=== PATIENT | female | born 1935 | race Two or more races ===

== ENCOUNTER → 2018-05-21 11:19 | Outpatient (CLI) | payer OTHER | END | disposition home or self-care (01) | LOC: LAB 11:19 | DX: M47.816 Spondylosis without myelopathy or radiculopathy, lumbar region (principal); D68.8 Other specified coagulation defects; G60.9 Hereditary and idiopathic neuropathy, unspecified ==

== ENCOUNTER 2018-06-04 07:13 | Day surgery (SDC) | payer OTHER ==
[~2018-06-04 07:13] MED LIST: FLEXERIL PO; KEPPRA500 MG PO
== END 2018-06-04 14:05 | disposition home or self-care (01) ==
LOC: CIR.AMB 07:13
DX: M54.06 Panniculitis affecting regions of neck and back, lumbar region (principal)

== ENCOUNTER 2019-08-31 10:14 | Inpatient (IN) | payer OTHER ==
[~2019-08-31] VITALS: Ht 172.7 cm; Wt 59.0 kg
--- NOTE | 2019-08-31 10:53 | NUR ---
PACIENTE FEMINA ALERTA Y ORIENTADO REFERIDA POR DR:MELVA HEMATOLOGO POR ANEMIA HGB 8.0 HCT 25.1 PLQ. 126
--- NOTE | 2019-08-31 13:34 | NUR ---
PTE EVALUADA POR LA DRA CRONIN QUIEN ORDENA EL TX.SE ORIENTA SOBRE EL MISMO, LO CUAL REFIERE ENTENDER, SE REALIZAN PRUEBAS DE LABORATORIO Y SE CANALIZA EN BRAZO Y MANO RT, AMBOS PATENTES Y LIBRES DE EDEMA O ERITEMA. SE LLEVAN TUBOS PILOTOS A BANCO DE ALEJANDRO. PTE CON PERMISO PARA TRANSFUSION YA FIRMADO.
--- NOTE | 2019-08-31 15:00 | NUR ---
PACIENTE ALERTA Y ORIENTADA EN GELY KRISTIN ESFERAS, PRESENTA BUEN PATRON RESPIRATORIO Y MAZIN DE DOLOR, CANALIZADA EN BRAZO RT X 2, AMBAS VENOPUNCIONES PATENTES Y LIBRES DE S/S DE FLEBITIS E INFILTRACION. PACIENTE ESTA EN ESPERA DE PRBC DISPONIBLE PARA TRANSFUNDIR. PERSONAL DE [place]AN[place] DE [place] REFIRIO QUE PACIENTE PRESENTA ANTICUERPOS.
--- NOTE | 2019-08-31 15:16 | NUR ---
SEENTREGAN TUBOS PILOTOS REQUERIDOSPOR MS ARENAS DE [place]AN[place] DE A[place]JAN[place] PARA PANEL DE ANTICUERPOS. SE ENTREGAN LOS MISMOS A MR EZEKIEL 3 TUBOS CORTNEY Y 1 TUBO ANDREWS.
--- NOTE | 2019-08-31 21:05 | NUR ---
SE LLAMA A [place] DE [place] PARA VERIFICAR DISPONIBILIDAD DE UNIDAD DE PRBC, TECNOLOGO MEDICO EZEKIEL REFIERE QUE UNIDAD NO ESTA DISPONIBLE QUE NOTIFICARA CUANDO LO HEMA.
--- NOTE | 2019-09-01 03:22 | NUR ---
PACIENTE ALERTA Y ORIENTADA X3 EN CAMA CON BARANDAS ELEVADAS Y CABECERA 30 GRADOS. PACIENTE ESTABLE SE MANTIENE BAJO OBSERVACION.
--- NOTE | 2019-09-01 04:09 | NUR ---
SE LLAMA A BANCO DE A[place]JANDR[place] PARA VERIFICAR ESTATUS DE ALEJANDRO ORDENADA. LICENCIADA CONDON INDICA QUE NO ESTA DISPONIBLE NIRMAL ESTA EN PROCESO DEBIDO A QUE ESTAN REALIZANDO EL PANEL DE ANTICUERPOS.
--- NOTE | 2019-09-01 07:11 | NUR ---
SE RECIBE PTE DEL TURNO ANTERIOR, ALERTA Y ORIENTADA X 3 ESFERAS, EN CAMA NIVEL MAS BAJO, CRAVEN DE IDENTIFICACION Y BARANDAS ELEVADAS POR PRECAUCION. SE OBSERVA CON BUEN PATRON RESPIRATORIO Y PIEL TIBIA AL TACTO. IV'S PATENTES Y LIBRES DE EDEMA O ERITEMA EN MANO Y BRAZO RT. PTE PENDIENTE A TRANSFUNDIR 1U DE PRBC LA MISMA PENDIENTE POR PANEL DE ANTICUERPOS A LAS 7:15AM.
--- NOTE | 2019-09-01 14:01 | NUR ---
PERSONAL DE BANCO DE ALEJANDRO NOTIFICA DISPONIBILIDAD DE 1 U DE PRBC, AL MOMENTO DE MEDIR S/V PTE SE ENCUENTRA TOMANDO UN CALDO CALIENTE, PRESENTA TEMPERATURA EN 102
--- NOTE | 2019-09-01 15:43 | NUR ---
PT ALERTA Y ORIENTADA X3 ESFERAS EN COMPANIA DE FAMILIAR. SE RECIBE EN CAMA CON BARANDAS ELEVADAS Y FRENOS COLOCADOS. PT TRANQUILA Y SIN DIFICULTAD RESPIRATORIA. PENDIENTE A TRANSFUNDIR UNIDAD DE PRBC, NOTIFICADA DISPONIBLE A LAS 2PM. PT PRESENTA FIEBRE CORPORAL Y DR BARBER ORDENA NO COMENZAR A TRANSFUNDIR HASTA BAJE LA TEMPERATURA. DR BONILLA, INTERNISTA CONSULTANTE, INDICA ESTAR DE ACUERDO.
[2019-09-02] MEDS ORDERED: CELECOXIB200 MG PO (14:29)
== END 2019-09-04 11:16 | disposition home or self-care (01) | DRG 842 ==
LOC: ER 10:14 → SEC-K 09-01 16:14 → MEDI 09-01 16:14
PROVIDERS: ADMIT Internal Medicine
PROC: 30233N1 Transfusion of Nonautologous Red Blood Cells into Peripheral Vein, Percutaneous Approach (ICD-10-PCS; principal; 2019-09-01)
DX: C94.6 Myelodysplastic disease, not elsewhere classified (principal); D63.0 Anemia in neoplastic disease

== ENCOUNTER 2019-09-26 14:39 | Inpatient (IN) | payer OTHER ==
[~2019-09-26] VITALS: Ht 172.7 cm; Wt 54.4 kg
[~2019-09-26 14:39] MED LIST changes: +CELECOXIB200 MG PO
== END 2019-10-06 18:18 | disposition home or self-care (01) | DRG 392 ==
LOC: ER 14:39 → MEDI 23:36
PROVIDERS: ADMIT Internal Medicine
PROC: BW21Y0Z Computerized Tomography (CT Scan) of Abdomen and Pelvis using Other Contrast, Unenhanced and Enhanced (ICD-10-PCS; 2019-09-27)
PROC: 30233N1 Transfusion of Nonautologous Red Blood Cells into Peripheral Vein, Percutaneous Approach (ICD-10-PCS; 2019-09-27)
PROC: 4A12X4Z Monitoring of Cardiac Electrical Activity, External Approach (ICD-10-PCS; 2019-09-27)
PROC: 0DB98ZX Excision of Duodenum, Via Natural or Artificial Opening Endoscopic, Diagnostic (ICD-10-PCS; principal; 2019-10-03)
PROC: 0DB68ZX Excision of Stomach, Via Natural or Artificial Opening Endoscopic, Diagnostic (ICD-10-PCS; 2019-10-03)
DX: K29.40 Chronic atrophic gastritis without bleeding (principal); J98.11 Atelectasis; J90 Pleural effusion, not elsewhere classified; N39.0 Urinary tract infection, site not specified; K29.80 Duodenitis without bleeding; D46.A Refractory cytopenia with multilineage dysplasia; K63.89 Other specified diseases of intestine; K29.00 Acute gastritis without bleeding; K57.30 Diverticulosis of large intestine without perforation or abscess without bleeding; I70.0 Atherosclerosis of aorta; B96.29 Other Escherichia coli [E. coli] as the cause of diseases classified elsewhere; I10 Essential (primary) hypertension